=== PATIENT | male | born 1990 | race American Indian/Alaskan Native ===

== ENCOUNTER 2017-03-04 15:02 | Emergency (ER) | payer SELFPAY ==
[2017-03-04 17:53] LABS: Bilirubin,Urine NEG (Negative); Blood,Urine NEG (Negative); Ketones,Urine NEG (Negative); Leukocyte Esterase,Urine NEG (Negative); Mucus,Urine FEW /HPF; Nitrite,Urine NEG (Negative); Protein,Urine <15 mg/dL mg/dL (Negative); WBC,Urine < 1.0 /HPF (0.0-6.0)
[2017-03-04] MEDS ORDERED: ROCEPHIN IM ONE (18:27)
[2017-03-04] MEDS ORDERED: XYLOCAINE 1% MPF 5 mL INFILTRATI ONE (18:27)
[2017-03-04] MEDS ORDERED: ZITHROMAX PO ONE (18:27)
--- NOTE | 2017-03-04 18:35 | Emergency Department Report ---
ED Male HPI - General Chief complaint: Urogenital-Male Stated complaint: BURNING TINGLING SYMPTOMS Time Seen by Provider: 03/04/17 17:10 Source: patient Mode of arrival: Ambulatory Limitations: No Limitations - History of Present Illness Initial comments: This is a 26-year-old male nontoxic, well nourished in appearance, no acute signs of distress presents to the ED complaining of possible STD. Patient stated he had up to a protected sex with a known female last week developed white penile discharge. Patient denies any dysuria, polyuria, hematuria, fever , chills, nausea, vomiting, chest pain or shortness of breath. Patient denies any penile ulcers or lesions. Denies any allergies or past history. He stated he had a unprotective sex. MD Complaint: penile discharge -: Gradual, week(s) (1) Location: penis Radiation: none Severity scale (0 -10): 0 Consistency: constant Improves with: none Worsens with: none discharge. denies: swelling, mass, rash, urinary retention, blood in urine, dysuria, fever, nausea/vomiting, incontinence - Related Data Sexually active: Yes Home Medications Medication Instructions Recorded Confirmed Last Taken No Known Home Medications [No 05/13/13 05/13/13 Unknown Reported Home Medications] Allergies Allergy/AdvReac Type Severity Reaction Status Date / Time No Known Allergies Allergy Unverified 05/13/13 12:54 ED Review of Systems ROS: Stated complaint: BURNING TINGLING SYMPTOMS Other details as noted in HPI Constitutional: denies: chills, fever Eyes: denies: eye pain, eye discharge, vision change ENT: denies: ear pain, throat pain Respiratory: denies: cough, shortness of breath, wheezing Cardiovascular: denies: chest pain, palpitations Endocrine: no symptoms reported Gastrointestinal: denies: abdominal pain, nausea, diarrhea Genitourinary: discharge. denies: urgency, dysuria Musculoskeletal: denies: back pain, joint swelling, arthralgia Skin: denies: rash, lesions Neurological: denies: headache, weakness, paresthesias Psychiatric: denies: anxiety, depression Hematological/Lymphatic: denies: easy bleeding, easy bruising ED Past Medical Hx - Past Medical History Previous Medical History?: Yes Hx Hypertension: Yes Hx Asthma: Yes - Surgical History Past Surgical History?: No - Social History Smoking Status: Current Every Day Smoker Substance Use Type: None, Alcohol - Medications Home Medications: Home Medications Medication Instructions Recorded Confirmed Last Taken Type No Known Home Medications [No 05/13/13 05/13/13 Unknown History Reported Home Medications] ED Physical Exam - General Limitations: No Limitations General appearance: alert, in no apparent distress - Head Head exam: Present: atraumatic, normocephalic, normal inspection - Eye Eye exam: Present: normal appearance, PERRL, EOMI. Absent: scleral icterus, conjunctival injection, nystagmus, periorbital swelling, periorbital tenderness Pupils: Present: normal accommodation - ENT ENT exam: Present: normal exam, normal orophraynx, mucous membranes moist, TM's normal bilaterally, normal external ear exam - Neck Neck exam: Present: normal inspection, full ROM. Absent: tenderness, meningismus, lymphadenopathy, thyromegaly - Respiratory Respiratory exam: Present: normal lung sounds bilaterally. Absent: respiratory distress, wheezes, rales, rhonchi, stridor, chest wall tenderness, accessory muscle use, decreased breath sounds, prolonged expiratory - Cardiovascular Cardiovascular Exam: Present: regular rate, normal rhythm, normal heart sounds. Absent: irregular rhythm, systolic murmur, diastolic murmur, rubs, gallop - GI/Abdominal GI/Abdominal exam: Present: soft, normal bowel sounds. Absent: distended, tenderness, guarding, rebound, rigid, diminished bowel sounds - Rectal Rectal exam: Present: deferred - exam: Present: normal inspection, urethral discharge (clear white). Absent: testicular tenderness, scrotal swelling, vertical testicular lie, circumcision External exam: Present: normal external exam. Absent: erythema, swelling, lesions, lacerations, ecchymosis, bleeding - Extremities Exam Extremities exam: Present: normal inspection, full ROM, normal capillary refill. Absent: tenderness, pedal edema, joint swelling, calf tenderness - Back Exam Back exam: Present: normal inspection, full ROM. Absent: tenderness, CVA tenderness (R), CVA tenderness (L), muscle spasm, paraspinal tenderness, vertebral tenderness, rash noted - Neurological Exam Neurological exam: Present: alert, oriented X3, CN II-XII intact, normal gait, reflexes normal - Psychiatric Psychiatric exam: Present: normal affect, normal mood - Skin Skin exam: Present: warm, dry, intact, normal color. Absent: rash ED Course Vital Signs 03/04/17 15:54 Temperature 98.5 F Pulse Rate 94 H Respiratory 20 Rate Blood Pressure 135/104 O2 Sat by Pulse 98 Oximetry - Reevaluation(s) Reevaluation #1: 03/04/17 18:34 Patient is speaking in full sentences with no signs of distress noted. ED Medical Decision Making - Medical Decision Making This is a 26-year-old male that presents with possible STD exposure. Pt was examined by myself and pt is stable. UA obtained with normal limits. G/C obtained and pending. Pt recevied rocephine and azithromycin in the ED. pt was instrcuted to return to medical records in 3 days to obtain results of g/c. Patient is hemodynamically stable with stable vital signs. At time time of discharge, the patient does not seem toxic or ill in appearance. No acute signs of distress noted. Patient agrees to discharge treatment plan of care. No further questions noted by the patient. Patient was instructed to follow-up with a primary care doctor in 3-5 days or if symptoms worsen and continue return to emergency room as soon as possible possible. Critical care attestation.: If time is entered above; I have spent that time in minutes in the direct care of this critically ill patient, excluding procedure time. ED Disposition Clinical Impression: Possible exposure to STD Disposition: DC-01 TO HOME OR SELFCARE Is pt being admited?: No Does the pt Need Aspirin: No Condition: Stable Instructions: Safe Sex (ED) Additional Instructions: Follow-up with a primary care doctor in 3-5 days or if symptoms worsen and continue return to emergency room as soon as possible. Referrals: JENNIFER CORRAL MD [Primary Care Provider] - 3-5 Days АНДРЕЙ OLIVARES MD [Staff Physician] - 3-[address] [facility] [Outside] - 3-5 Days [facility] [Outside] - 3-5 Days Forms: Work/School Release Form(ED)
[2017-03-04 19:48] VITALS: BP 145/92
== END 2017-03-04 19:26 | disposition home or self-care (01) ==
LOC: ED 15:02
DX: R36.9 Urethral discharge, unspecified (principal); I10 Essential (primary) hypertension; J45.909 Unspecified asthma, uncomplicated; F17.200 Nicotine dependence, unspecified, uncomplicated
CPT/HCPCS: 81001; 87591; 96372; 99283; J0696

== ENCOUNTER 2019-02-02 01:02 | Emergency (ER) | payer SELFPAY ==
[2019-02-02 02:04] VITALS: BP 141/104
[2019-02-02] MEDS ORDERED: XYLOCAINE 2% INFILTRATI ONE (02:21)
[2019-02-02] MEDS ORDERED: IBUPROFEN PO ONE (02:22)
[2019-02-02] MEDS ORDERED: BACTRIM DS PO ONE (02:22)
--- NOTE | 2019-02-02 02:22 | Emergency Department Report ---
Abscess Boil HPI - HPI Chief Complaint: Skin/Abscess/Foreign Body Stated Complaint: ABSCESS ON RT SIDE OF FACE Time Seen by Provider: 02/02/19 02:19 Duration: >1 Week Location: Other Severity: Mild History: Yes Pain, Yes Previous History, No Fever, No Purulent Drainage, No Numbness, No Foreign Body, No Insect Bite HPI: 28 YO WITH ABSCESS TO RIGHT SIDE OF FACE. HAS HAD FOR SOME TIME BUT IS GETTING BIGGER. Home Medications: Previous Rx's Medication Instructions Recorded Last Taken Type predniSONE [Deltasone] 20 mg PO DAILY #5 tablet 02/02/19 Unknown Rx Allergies/Adverse Reactions: Allergies Allergy/AdvReac Type Severity Reaction Status Date / Time No Known Allergies Allergy Unverified 05/13/13 12:54 ED Review of Systems ROS: Stated complaint: ABSCESS ON RT SIDE OF FACE Other details as noted in HPI Comment: All other systems reviewed and negative ED Past Medical Hx - Past Medical History Previous Medical History?: Yes Hx Hypertension: Yes Hx Asthma: Yes - Surgical History Past Surgical History?: Yes - Family History Family history: no significant - Social History Smoking Status: Current Every Day Smoker Substance Use Type: Marijuana - Medications Home Medications: Home Medications Medication Instructions Recorded Confirmed Last Taken Type predniSONE [Deltasone] 20 mg PO DAILY #5 tablet 02/02/19 Unknown Rx ED Abscess Boil Physical Exam - Exam General: Vital signs noted. No distress. Alert and acting appropriately. Size: 5 cm Exam: Yes Tenderness, Yes Fluctuance, Yes Normal Neurologic Exam, Yes Normal Circulation, No Surrounding Cellulites/Erythema, No Lymphangitis, No Crepitation, No Heart Murmur I & D Note - I & D Note I & D Note: AREA CLEANED WITH BETADINE. LIDO 1% 1 ML. NO 5 BLADE TO OPEN FOR MOD AMOUNT WHAT APPEARS TO BE OLD BLOODY DRAINAGE. TOLERATED WELL. WOUND CLEANED AND DRESSING APPLIED ED Course Vital Signs 02/02/19 01:59 Temperature 98.2 F Pulse Rate 72 Respiratory 18 Rate Blood Pressure 141/104 O2 Sat by Pulse 97 Oximetry Critical care attestation.: If time is entered above; I have spent that time in minutes in the direct care of this critically ill patient, excluding procedure time. ED Medical Decision Making - Medical Decision Making ON ANTIBIOTICS FOR STI; HE DONT KNOW WHAT GIVEN ROCHEPHIN AND PREDNISONE HERE WILL DC HOME AND HAVE HIM FOLLOW UP WITH DERM I EXPLAINED TO PT THAT I SUSPECT THERE IS A CYSTIC COMPONENT TO THIS LESIONS VSS NO FEVER NO CHILLS NO SYSTEMIC SYMPTOMS REPEAT BP 140/90 DC HOME WITH PCP FOLLOW UP Vital Signs 02/02/19 01:59 Temperature 98.2 F Pulse Rate 72 Respiratory 18 Rate Blood Pressure 141/104 O2 Sat by Pulse 97 Oximetry - Differential Diagnosis SIMPLE ABSCESS ED Disposition Clinical Impression: Abscess Disposition: DC-01 TO HOME OR SELFCARE Is pt being admited?: No Does the pt Need Aspirin: No Condition: Stable Instructions: Abscess (ED) Additional Instructions: MED ORDERED TONIGHT FOLLOW UP WITH DERM MD REFERRAL BELOW MOTRIN OR TYLENOL FOR PAIN ICE TO SITE TONIGHT Referrals: JULIA GUZMAN MD [Primary Care Provider] - 3-5 Days Time of Disposition: 02:21
[2019-02-02] MEDS ORDERED: ROCEPHIN IM ONE (02:48)
[2019-02-02] MEDS ORDERED: XYLOCAINE 1% MPF 5 mL INFILTRATI ONE (02:48)
[2019-02-02] MEDS ORDERED: DELTASONE PO ONE (02:48)
== END 2019-02-02 03:35 | disposition home or self-care (01) ==
LOC: ED 01:02
DX: L02.01 Cutaneous abscess of face (principal); I10 Essential (primary) hypertension; J45.909 Unspecified asthma, uncomplicated; F17.200 Nicotine dependence, unspecified, uncomplicated; F12.10 Cannabis abuse, uncomplicated; Z79.899 Other long term (current) drug therapy
CPT/HCPCS: 10060; 96372; 99282; J0696; J7512